=== PATIENT | female | born 1965 | race Caucasian/White ===

== ENCOUNTER 2023-08-09 08:39 | Day surgery (SDC) | payer OTHER ==
[~2023-08-09] VITALS: Ht 154.9 cm; Wt 48.2 kg
[~2023-08-09 08:39] MED LIST: SODIUM CHLORIDE 0.9% 1,000 ML IV ONE; SODIUM CHLORIDE 0.9% 1,000 ML ONE
[2023-08-09] MEDS ORDERED: LIDOCAINE/PF 2% 5 ML VIAL IM ONE (08:40)
[2023-08-09] MEDS ORDERED: PROPOFOL 1% 20 ML VIAL IVP ONE (08:40)
[2023-08-09] MEDS ORDERED: ACETAMINOPHEN 500 MG TABLET ONE (11:52)
[2023-08-09] MEDS ORDERED: ACETAMINOPHEN 500 MG TABLET PO ONE (12:00)
== END 2023-08-09 12:35 | disposition home or self-care (01) ==
LOC: SURGERY 08:39
PROVIDERS: ATTEND Internal Medicine Gastroenterology
DX: Z12.11 Encounter for screening for malignant neoplasm of colon (principal); D12.0 Benign neoplasm of cecum; I12.0 Hypertensive chronic kidney disease with stage 5 chronic kidney disease or end stage renal disease; E11.22 Type 2 diabetes mellitus with diabetic chronic kidney disease; N18.6 End stage renal disease; Z99.2 Dependence on renal dialysis; Z98.890 Other specified postprocedural states; Z79.899 Other long term (current) drug therapy
CPT/HCPCS: 88305; 45385; C1769; J2704; J3490; J7030